=== PATIENT | female | born 1995 | race Caucasian/White ===

== ENCOUNTER 2018-01-01 13:25 | Emergency (ER) | payer SELFPAY ==
[2018-01-01 16:19] LABS: Urine Blood TRACE (NEG); Urine Glucose NEGATIVE (NEG); Urine Protein NEGATIVE (NEG); Urine Specific Gravity 1.025 (1.005-1.030); Urine pH 5.5 (5.0-7.0)
[2018-01-01 16:25] LABS: Urine Bacteria <20 /HPF (<20); Urine Culture Reflex Order NOT NEEDED; Urine RBC <5 /HPF (NONE SEEN)
[2018-01-01] MEDS ORDERED: PANTOPRAZOLE 40MG TABLET PO ONE (16:36)
[2018-01-01] MEDS ORDERED: LIDOCAINE VISCOUS 2% SOLN 15 ML UDC ONE (16:36)
[2018-01-01] MEDS ORDERED: MAGNE/ALUM HYDROXD 30 ML UCUP ONE (16:36)
--- NOTE | 2018-01-01 17:33 | ER ---
Nurse's Notes [facility] Name: Sarah West Age: 22 yrs Sex: Female : 1995 Arrival Date: 01/01/2018 Time: 13:30 Bed 4 Private MD: Diagnosis: Gastritis, unspecified Presentation: 01/01 13:30 Presenting complaint: Intermittent upper abdominal pain x 5 days, diarrhea x 2 days. hb Denies N/V/fever. Transition of care: patient was not received from another setting of care. Onset of symptoms was December 28, 2017. Initial Sepsis Screen: Does the patient meet any 2 criteria? No. Patient's initial sepsis screen is negative. Does the patient have a suspected source of infection? No. Patient's initial sepsis screen is negative. Care prior to arrival: Medication(s) given: Tylenol, at 0900. 13:30 Method Of Arrival: Ambulatory hb 13:30 Acuity: MANOLO 3 hb Triage Assessment: 13:34 General: Appears in no apparent distress. Behavior is calm, cooperative. Pain: Pain hb currently is 8 out of 10 on a pain scale. Neuro: Level of Consciousness is awake, alert, obeys commands, Oriented to person, place, time, situation. Cardiovascular: Capillary refill < 3 seconds Patient's skin is warm and dry. Respiratory: Airway is patent Trachea midline Respiratory effort is even, unlabored, Respiratory pattern is regular, symmetrical. GI: Reports upper abdominal pain. 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 - Social history:: Smoking status: Patient/guardian denies using tobacco. Screenin:45 Abuse screen: Denies threats or abuse. Denies injuries from another. Nutritional sv screening: No deficits noted. Tuberculosis screening: No symptoms or risk factors identified. Fall Risk None identified. Assessment: 15:35 General: Appears in no apparent distress. uncomfortable, obese, well developed, sv Behavior is calm, cooperative, appropriate for age. Pain: Complains of pain in epigastric area Pain currently is 8 out of 10 on a pain scale. Quality of pain is described as crampy, Pain began Is intermittent. Neuro: Level of Consciousness is awake, alert, obeys commands, Oriented to person, place, time, situation, Moves all extremities. Full function Gait is steady. Respiratory: Respiratory effort is even, unlabored, Respiratory pattern is regular, symmetrical. GI: Abdomen is obese, Stools are reported to be diarrhea. Reports cramping, diarrhea. Derm: Skin is pink, warm \\T\\ dry. Musculoskeletal: No signs and/or symptoms reported regarding the musculoskeletal system. 15:45 Reassessment: Pt ambulatory to the bathroom with no difficulties noted. sv 16:40 Reassessment: Patient appears in no apparent distress at this time. No changes from sv previously documented assessment. Patient and/or family updated on plan of care and expected duration. Pain level reassessed. Patient is alert, oriented x 3, equal unlabored respirations, skin warm/dry/pink. 17:50 Reassessment: Patient is alert, oriented x 3, equal unlabored respirations, skin aa5 warm/dry/pink. Patient states feeling better. Vital Signs: 13:33 BP 141 / 95; Pulse 92; Resp 16; Temp 98.4; Pulse Ox 97% on R/A; Weight 153.31 kg; hb Height 5 ft. 2 in. (157.48 cm); Pain 8/10; 15:38 BP 134 / 78 LA Supine (auto/lg); Pulse 86; sv 15:40 BP 137 / 90 LA Sitting (auto/lg); Pulse 77; sv 15:42 BP 143 / 89 LA Standing (auto/lg); Pulse 93; sv 16:40 BP 132 / 78; Pulse 83; Resp 18; Pulse Ox 100% ; sv 13:33 Body Mass Index 61.82 (153.31 kg, 157.48 cm) hb ED Course: 13:30 Patient arrived in ED. al2 13:32 Triage completed. hb 13:34 Arm band placed on right wrist. hb 15:18 Tanja Cooper [facility]-C [facility]. snw 15:18 Tamir Grace MD is Attending Physician. snw 15:33 Elaine Hoover, JHONY is Primary Nurse. sv 15:45 Patient has correct armband on for positive identification. Bed in low position. Call sv light in reach. Side rails up X 1. Adult w/ patient. Pulse ox on. NIBP on. Door closed. Head of bed elevated. 17:50 No provider procedures requiring assistance completed. aa5 17:50 Patient did not have IV access during this emergency room visit. aa5 Administered Medications: 16:40 Drug: ProTONIX 40 mg Route: PO; sv 17:50 Follow up: Response: No adverse reaction aa5 16:40 Drug: GI Cocktail without - (Maalox Suspension 30 ml, Lidocaine Liquid 2 % 15 sv ml) Route: PO; 17:50 Follow up: Response: No adverse reaction aa5 Outcome: 17:32 Discharge ordered by . snw 17:48 Discharged to home ambulatory, with significant other. aa5 17:48 Condition: stable 17:48 Discharge instructions given to patient, Instructed on discharge instructions, follow up and referral plans. medication usage, Demonstrated understanding of instructions, follow-up care, medications, Prescriptions given X 2. 17:50 Patient left the ED. aa5 Signatures: Elaine Hoover RN RN Tanja Cooper, TECHNOLOGY ADMINISTRATOR-C TECHNOLOGY ADMINISTRATOR-Csnw Ana Valerio RN RN aa5 Bianca Ibrahim RN RN Pamela Lo Corrections: (The following items were deleted from the chart) 13:33 13:30 Presenting complaint: Patient states: Upper abdominal pain x 5 days, diarrhea x 2 hb days. Denies N/V/fever. hb 17:57 17:49 Patient left the ED. aa5 aa5
--- NOTE | 2018-01-01 17:33 | EDPHYS ---
Physician Documentation [facility] Name: Sarah West Age: 22 yrs Sex: Female : 1995 Arrival Date: 01/01/2018 Time: 13:30 Bed 4 Private MD: ED Physician Tamir Grace HPI: 01/01 17:38 This 22 yrs old Female presents to ER via Ambulatory with complaints of snw Abdominal Pain. 17:38 The patient presents with abdominal pain in the upper abdomen. Onset: The snw symptoms/episode began/occurred suddenly, 5 day(s) ago, and became persistent. The symptoms do not radiate. Associated signs and symptoms: none. The symptoms are described as sharp. Modifying factors: The symptoms are alleviated by nothing. Severity of pain: At its worst the pain was moderate. The patient has not experienced similar symptoms in the past. It is unknown whether or not the patient has recently seen a physician. 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 - Social history:: Smoking status: Patient/guardian denies using tobacco. ROS: 17:38 Constitutional: Negative for fever, chills, and weight loss, Eyes: Negative for injury, snw pain, redness, and discharge, ENT: Negative for injury, pain, and discharge, Neck: Negative for injury, pain, and swelling, Cardiovascular: Negative for chest pain, palpitations, and edema, Respiratory: Negative for shortness of breath, cough, wheezing, and pleuritic chest pain, Back: Negative for injury and pain, : Negative for injury, bleeding, discharge, and swelling, MS/Extremity: Negative for injury and deformity, Skin: Negative for injury, rash, and discoloration, Neuro: Negative for headache, weakness, numbness, tingling, and seizure. 17:38 Abdomen/GI: Positive for abdominal pain, Negative for nausea, vomiting, abdominal cramps, abdominal distension, hematemesis, black/tarry stool. Exam: 17:37 Constitutional: This is a well developed, well nourished patient who is awake, alert, snw and in no acute distress. Head/Face: Normocephalic, atraumatic. Eyes: Pupils equal round and reactive to light, extra-ocular motions intact. Lids and lashes normal. Conjunctiva and sclera are non-icteric and not injected. Cornea within normal limits. Periorbital areas with no swelling, redness, or edema. ENT: Nares patent. No nasal discharge, no septal abnormalities noted. Tympanic membranes are normal and external auditory canals are clear. Oropharynx with no redness, swelling, or masses, exudates, or evidence of obstruction, uvula midline. Mucous membranes moist. Neck: Trachea midline, no thyromegaly or masses palpated, and no cervical lymphadenopathy. Supple, full range of motion without nuchal rigidity, or vertebral point tenderness. No Meningismus. Chest/axilla: Normal chest wall appearance and motion. Nontender with no deformity. No lesions are appreciated. Cardiovascular: Regular rate and rhythm with a normal S1 and S2. No gallops, murmurs, or rubs. Normal PMI, no JVD. No pulse deficits. Respiratory: Lungs have equal breath sounds bilaterally, clear to auscultation and percussion. No rales, rhonchi or wheezes noted. No increased work of breathing, no retractions or nasal flaring. Back: No spinal tenderness. No costovertebral tenderness. Full range of motion. Skin: Warm, dry with normal turgor. Normal color with no rashes, no lesions, and no evidence of cellulitis. MS/ Extremity: Pulses equal, no cyanosis. Neurovascular intact. Full, normal range of motion. Neuro: Awake and alert, GCS 15, oriented to person, place, time, and situation. Cranial nerves II-XII grossly intact. Motor strength 5/5 in all extremities. Sensory grossly intact. Cerebellar exam normal. Normal gait. 17:37 Abdomen/GI: Inspection: abdomen appears normal, obese Bowel sounds: normal, Palpation: mild abdominal tenderness, moderate abdominal tenderness, in the left upper quadrant. Vital Signs: 13:33 BP 141 / 95; Pulse 92; Resp 16; Temp 98.4; Pulse Ox 97% on R/A; Weight 153.31 kg; hb Height 5 ft. 2 in. (157.48 cm); Pain 8/10; 15:38 BP 134 / 78 LA Supine (auto/lg); Pulse 86; sv 15:40 BP 137 / 90 LA Sitting (auto/lg); Pulse 77; sv 15:42 BP 143 / 89 LA Standing (auto/lg); Pulse 93; sv 16:40 BP 132 / 78; Pulse 83; Resp 18; Pulse Ox 100% ; sv 13:33 Body Mass Index 61.82 (153.31 kg, 157.48 cm) hb MDM: 15:18 Patient medically screened. snw 17:35 Data reviewed: vital signs, nurses notes. Data interpreted: Pulse oximetry: on room air snw is 100 %. Interpretation: normal. Counseling: I had a detailed discussion with the patient and/or guardian regarding: the historical points, exam findings, and any diagnostic results supporting the discharge/admit diagnosis, lab results, the need for outpatient follow up, to return to the emergency department if symptoms worsen or persist or if there are any questions or concerns that arise at home. Special discussion: Based on the patient's Hx, exam, and Dx evaluation, there is no indication for emergent surgery or inpatient Tx. It is understood by the patient/guardian that if the Sx's persist or worsen they need to return immediately for re-evaluation. Based on the history and exam findings, there is no indication for further emergent testing or inpatient evaluation. I discussed with the patient/guardian the need to see the primary care provider for further evaluation of the symptoms. ED course: no vomiting, no nausea, no alteration in VS, no surgically emergent finding. Orthostatics normal. 01/01 15:19 Order name: Urine Culture snw 01/01 15:19 Order name: Urine Microscopic Only; Complete Time: 16:26 snw 01/01 16:14 Order name: Urine Dipstick--Ancillary (enter results); Complete Time: 16:26 bd 01/01 16:14 Order name: Urine --Ancillary (enter results); Complete Time: 16:26 bd 01/01 15:01 Order name: Orthostatics; Complete Time: 15:44 snw 01/01 15:19 Order name: Urine Test (obtain specimen); Complete Time: 16:14 snw 01/01 15:19 Order name: Urine Dipstick-Ancillary (obtain specimen); Complete Time: 16:14 snw Administered Medications: 16:40 Drug: ProTONIX 40 mg Route: PO; sv 17:50 Follow up: Response: No adverse reaction aa5 16:40 Drug: GI Cocktail without - (Maalox Suspension 30 ml, Lidocaine Liquid 2 % 15 sv ml) Route: PO; 17:50 Follow up: Response: No adverse reaction aa5 Disposition: 20:55 Co-signature as Attending Physician, Tamir Grace MD. rn Disposition: 01/01/18 17:32 Discharged to Home. Impression: Gastritis, unspecified. - Condition is Stable. - Discharge Instructions: Gastritis, Adult, Abdominal Pain, Women. - Prescriptions for Bentyl 20 mg Oral Tablet - take 1 tablet by ORAL route every 6 hours As needed; 20 tablet. Nexium 20 mg Oral Capsule - take 1 capsule by ORAL route once daily; 20 capsule. - Medication Reconciliation Form, Thank You Letter, Antibiotic Education, Prescription Opioid Use form. - Follow up: Private Physician; When: 1 - 2 days; Reason: Recheck today's complaints, Continuance of care, Re-evaluation by your physician. Follow up: Emergency Department; When: As needed; Reason: Worsening of condition. - Problem is new. - Symptoms are unchanged. Signatures: Dispatcher [employer] EDOH Elaine Hoover RN RN sv Tanja Cooper, FRUIT GRADER OPERATOR-C FRUIT GRADER OPERATOR-Csnw Tamir Grace MD MD rn Calderon, Audri RN RN aa Bianca Ibrahim RN RN Corrections: (The following items were deleted from the chart) 17:49 17:32 01/01/2018 17:32 Discharged to Home. Impression: Gastritis, unspecified. aa5 Condition is Stable. Forms are Medication Reconciliation Form, Thank You Letter, Antibiotic Education, Prescription Opioid Use. Follow up: Private Physician; When: 1 - 2 days; Reason: Recheck today's complaints, Continuance of care, Re-evaluation by your physician. Follow up: Emergency Department; When: As needed; Reason: Worsening of condition. Problem is new. Symptoms are unchanged. snw
== END 2018-01-01 17:49 | disposition home or self-care (01) ==
LOC: ER 13:25
DX: K29.70 Gastritis, unspecified, without bleeding (principal)
CPT/HCPCS: 81003; 81015; 81025; 87086; 87088; 99283